=== PATIENT | female | born 1965 | race African-American/Black ===

== ENCOUNTER 2017-09-24 09:08 | Inpatient (IN) | payer BC, OTHER ==
[~2017-09-24] VITALS: Ht 167.6 cm; Wt 76.4 kg
[2017-09-24] MEDS ORDERED: SODIUM CHLORIDE 0.9% 1,000 ML IV ONE (09:40)
[2017-09-24] MEDS ORDERED: NALBUPHINE HCL 10 MG/1ml INJECTION IV ONE (09:45)
[2017-09-24] MEDS ORDERED: ASPirin 81 mg TAB PO ONE (09:45)
[2017-09-24] MEDS ORDERED: PROMETHAZINE HCL 25 MG/ML 1ML IV ONE (09:45)
[2017-09-24 10:37] LABS: Basophils # (auto) 0 uL; Basophils % (auto) 0.3 % (0.0-2.0); Eosinophils # (auto) 0 uL; Eosinophils % (auto) 0.1 % (0.0-7.0); Hematocrit 38.3 % (36.0-46.0); Hemoglobin 12.9 g/dL (12.2-16.2); Lymphocytes # (auto) 0.8 uL; Mean Corpuscular Hemoglobin 29.5 pg (28.0-32.0); Mean Corpuscular Hgb Conc. 33.8 g/dL (32.0-36.0); Mean Corpuscular Volume 87.3 fL (80.0-100.0); Monocytes # (auto) 0.4 uL; Monocytes % (auto) 4.7 % (0.0-12.0); Neutrophils # (auto) 7.3 uL; Neutrophils % (auto) 85.9 % (37.0-80.0); Nucleated Red Blood Cells % 0.2 %; Platelet Count (auto) 167 10^3/uL (140-450); Red Blood Cells 4.39 10^6/uL (4.0-5.20); Red Cell Distribution Width 13.6 % (11.8-14.3); White Blood Cell 8.5 10^3/uL (4.4-10.8)
[2017-09-24 11:06] LABS: INR 1.02 (0.9-1.15); Partial Thromboplastin Time 27.7 sec (22.64-33.71); Prothrombin Time 11.1 sec (9.37-12.3)
[2017-09-24 11:20] LABS: Alanine Aminotransferase 21 U/L (13-56); Albumin 4.1 g/dL (3.4-5.0); Alkaline Phosphatase 62 U/L (45-117); Anion Gap 10 (5-15); Aspartate Aminotransferase 17 U/L (15-37); BUN/Creatinine Ratio 13.5; Bilirubin, Total 0.7 mg/dL (0.2-1.0); Blood Urea Nitrogen 10 mg/dL (7-18); Calcium 9.1 mg/dL (8.5-10.1); Carbon Dioxide 23 mmol/L (21-32); Chloride 104 mmol/L (98-107); GFR African American 106 mL/min; GFR Non-African American 88 mL/min; Glucose 90 mg/dL (74-106); Magnesium 2.4 mg/dL (1.6-2.6); Potassium 3.1 mmol/L (3.5-5.1); Sodium 137 mmol/L (136-145); Total Protein 8.4 g/dL (6.4-8.2)
[2017-09-24] MEDS ORDERED: POTASSIUM CHL 10% (20 MEQ/15ML) 15ml ORAL SOLN PO ONE (13:15)
[2017-09-24 14:24] LABS: Urine Bacteria NONE SEEN /hpf (None Seen); Urine Blood 1+ /uL (Negative); Urine Mucus FEW (None Seen); Urine Specific Gravity 1.022 (1.001-1.035); Urine WBC <1 /hpf (0 - 5)
[2017-09-24] MEDS ORDERED: TEMAZEPAM 15 MG CAP PO PRN (15:15)
[2017-09-24] MEDS ORDERED: MORPHINE SULFATE 10 MG/ML INJ 1ML SDV IV PRN (15:15)
[2017-09-24] MEDS ORDERED: cefTRIAXone 1GM/50ML D5W 50 ML IV ONE (15:15)
[2017-09-24] MEDS ORDERED: NITROGLYCERIN 0.4 MG SL TAB SL PRN (15:15)
[2017-09-24] MEDS ORDERED: ACETAMINOPHEN 500 MG TAB PO PRN (15:15)
[2017-09-24] MEDS ORDERED: LORazepam 0.5 MG TAB PO PRN (15:15)
[2017-09-24 15:44] LABS: Alcohol, Urine < 3.0 mg/dL (0-5); Amphetamine Screen, Urine NEGATIVE (NEGATIVE); Barbiturate Scree,Urine NEGATIVE (NEGATIVE); Benzodiazephine Screen, Urine NEGATIVE (NEGATIVE); Cannabinoid Screen, Urine NEGATIVE (NEGATIVE); Cocaine Screen, Urine NEGATIVE (NEGATIVE); Opiate Scree,Urine NEGATIVE (NEGATIVE); Phencyclidine Screen, Urine NEGATIVE (NEGATIVE)
[2017-09-24] MEDS: FAMOTIDINE (10MG/ML) 2ML VL IV SCH ×2 (15:47→21:30)
[2017-09-24] MEDS: SOD CHL 0.9%/ KCL 20MEQ 1,000 ML IV SCH (15:47)
[2017-09-24] MEDS: HYDROcodone-ACET 5/325MG TAB PO PRN ×2 (15:48→20:05)
[2017-09-24] MEDS: MORPHINE SULFATE 10 MG/ML INJ 1ML SDV IV PRN ×2 (17:28→21:33)
[2017-09-24 18:54] VITALS: BP 107/60
[2017-09-24] MEDS: metroNIDAZOLE 500MG/100ML 100 ML IV SCH (19:02)
[2017-09-24 20:00] VITALS: BP 115/70
[2017-09-24] MEDS: PROMETHAZINE HCL 25 MG/ML 1ML IV PRN (21:36)
[2017-09-24 23:09] VITALS: BP 115/70
[2017-09-25] MEDS: metroNIDAZOLE 500MG/100ML 100 ML IV SCH ×5 (00:31→23:31)
[2017-09-25] MEDS: SOD CHL 0.9%/ KCL 20MEQ 1,000 ML IV SCH ×2 (01:15→12:09)
[2017-09-25] MEDS: MORPHINE SULFATE 10 MG/ML INJ 1ML SDV IV PRN ×2 (03:49→09:42)
[2017-09-25 05:10] VITALS: BP 105/64
[2017-09-25 07:38] LABS: Basophils # (auto) 0.1 uL; Basophils % (auto) 0.4 % (0.0-2.0); Eosinophils # (auto) 0 uL; Eosinophils % (auto) 0.1 % (0.0-7.0); Hematocrit 35.8 % (36.0-46.0); Hemoglobin 12.1 g/dL (12.2-16.2); Lymphocytes # (auto) 0.7 uL; Mean Corpuscular Hemoglobin 29.7 pg (28.0-32.0); Mean Corpuscular Hgb Conc. 33.8 g/dL (32.0-36.0); Mean Corpuscular Volume 87.9 fL (80.0-100.0); Neutrophils # (auto) 10.5 uL; Neutrophils % (auto) 85.5 % (37.0-80.0); Platelet Count (auto) 154 10^3/uL (140-450); Red Blood Cells 4.08 10^6/uL (4.0-5.20); Red Cell Distribution Width 14.1 % (11.8-14.3); White Blood Cell 12.3 10^3/uL (4.4-10.8)
[2017-09-25 08:03] LABS: Albumin 3.1 g/dL (3.4-5.0); BUN/Creatinine Ratio 19.7; Bilirubin, Total 1.2 mg/dL (0.2-1.0); Calcium 8.6 mg/dL (8.5-10.1); Potassium 3.8 mmol/L (3.5-5.1); Total Protein 7.4 g/dL (6.4-8.2)
[2017-09-25 09:00] VITALS: BP 104/64
[2017-09-25] MEDS: cefTRIAXone 1GM/50ML D5W 50 ML IV SCH (09:29)
[2017-09-25] MEDS: FAMOTIDINE (10MG/ML) 2ML VL IV SCH ×2 (09:29→21:35)
[2017-09-25] MEDS: ENOXAPARIN SOD 40 MG/0.4 ML SYRINGE SC SCH (10:00)
[2017-09-25] MEDS ORDERED: MIDAZOLAM HCL 1MG/1ML-2 ML VIAL ONE (13:07)
[2017-09-25] MEDS ORDERED: LIDOCAINE HCL 2 %PF INJ 10ML AMP IJ ONE (13:07)
[2017-09-25] MEDS ORDERED: PROPOFOL 10 MG/ML 20 ML IV ONE (13:07)
[2017-09-25] MEDS ORDERED: METOCLOPRAMIDE HCL 5MG/ml INJ 2ml VIAL ONE (13:07)
[2017-09-25] MEDS ORDERED: fentaNYL CITRATE 100 MCG/2 ML VL ONE (13:07)
[2017-09-25] MEDS ORDERED: ONDANSETRON HCL 4 MG/2 ML VIAL ONE (13:07)
[2017-09-25] MEDS ORDERED: ROCURONIUM 10MG/ML 10ML VIAL IV ONE (13:11)
[2017-09-25] MEDS ORDERED: POVIDONE IODINE 10 % TOPICAL OINT 30GM TOP ONE (13:16)
[2017-09-25] MEDS ORDERED: ceFAZolin 1GM/50ML 0 ML IV ONE (13:16)
[2017-09-25] MEDS ORDERED: ceFAZolin 1GM VL ONE (13:18)
[2017-09-25] MEDS ORDERED: PHENYLEPHRINE HCL 10 MG/ML VL ONE (13:20)
[2017-09-25] MEDS ORDERED: NEOSTIGMINE 1 MG/ML INJ (10mg/10ML VIAL) ONE (13:46)
[2017-09-25] MEDS ORDERED: KETOROLAC TROMETH 30 MG/ML 1ML VIAL ONE (13:46)
[2017-09-25] MEDS ORDERED: GLYCOPYRROLATE 0.2 MG/ML 1ML VIAL ONE (13:46)
[2017-09-25] MEDS ORDERED: DEXAMETHASONE SOD PHOS 10MG/1ML VIAL INJ ONE (13:49)
[2017-09-25] MEDS ORDERED: METOCLOPRAMIDE HCL 5MG/ml INJ 2ml VIAL IV ONE (14:45)
[2017-09-25] MEDS ORDERED: LABETALOL HCL 5 MG/ML 4ML SYRINGE IV PRN (14:45)
[2017-09-25] MEDS ORDERED: HYDROmorphone HCL 2 MG/ML VL IV PRN (14:45)
[2017-09-25 17:00] VITALS: BP 91/55
[2017-09-25] MEDS: HYDROcodone-ACET 5/325MG TAB PO PRN (21:43)
[2017-09-25 22:22] VITALS: BP 114/68
[2017-09-26] MEDS: SOD CHL 0.9%/ KCL 20MEQ 1,000 ML IV SCH ×3 (04:33→19:00)
[2017-09-26] MEDS: HYDROcodone-ACET 5/325MG TAB PO PRN ×2 (04:35→18:10)
[2017-09-26 04:41] VITALS: BP 96/60
[2017-09-26] MEDS: metroNIDAZOLE 500MG/100ML 100 ML IV SCH ×4 (05:39→23:28)
[2017-09-26 09:00] VITALS: BP 98/52
[2017-09-26] MEDS: MORPHINE SULFATE 10 MG/ML INJ 1ML SDV IV PRN ×2 (09:53→14:29)
[2017-09-26] MEDS: ENOXAPARIN SOD 40 MG/0.4 ML SYRINGE SC SCH (09:53)
[2017-09-26] MEDS: FAMOTIDINE (10MG/ML) 2ML VL IV SCH ×2 (09:53→22:14)
[2017-09-26] MEDS: cefTRIAXone 1GM/50ML D5W 50 ML IV SCH (09:53)
[2017-09-26 17:00] VITALS: BP 116/69
[2017-09-26 22:00] VITALS: BP 117/75
[2017-09-27] MEDS: MORPHINE SULFATE 10 MG/ML INJ 1ML SDV IV PRN ×3 (05:26→15:39)
[2017-09-27] MEDS: metroNIDAZOLE 500MG/100ML 100 ML IV SCH ×4 (05:44→23:37)
[2017-09-27 05:56] VITALS: BP 118/73
[2017-09-27] MEDS: SOD CHL 0.9%/ KCL 20MEQ 1,000 ML IV SCH ×2 (06:08→17:39)
[2017-09-27 06:28] LABS: Basophils # (auto) 0 uL; Basophils % (auto) 0.3 % (0.0-2.0); Eosinophils # (auto) 0.1 uL; Eosinophils % (auto) 1.1 % (0.0-7.0); Hematocrit 26.7 % (36.0-46.0); Hemoglobin 9.1 g/dL (12.2-16.2); Lymphocytes # (auto) 0.8 uL; Lymphocytes % (auto) 14.8 % (10.0-50.0); Mean Corpuscular Hemoglobin 29.9 pg (28.0-32.0); Mean Corpuscular Hgb Conc. 34.3 g/dL (32.0-36.0); Mean Corpuscular Volume 87.4 fL (80.0-100.0); Monocytes # (auto) 0.4 uL; Monocytes % (auto) 7.4 % (0.0-12.0); Neutrophils # (auto) 4.2 uL; Neutrophils % (auto) 76.4 % (37.0-80.0); Platelet Count (auto) 141 10^3/uL (140-450); Red Blood Cells 3.06 10^6/uL (4.0-5.20); Red Cell Distribution Width 13.5 % (11.8-14.3); White Blood Cell 5.5 10^3/uL (4.4-10.8)
[2017-09-27 06:43] LABS: Calcium 8.1 mg/dL (8.5-10.1); Magnesium 2.2 mg/dL (1.6-2.6); Phosphorus 1.5 mg/dL (2.5-4.90); Potassium 3.4 mmol/L (3.5-5.1)
[2017-09-27 08:30] VITALS: BP 127/75
[2017-09-27] MEDS ORDERED: POTASSIUM CHL 20 Meq TABLET PO ONE (09:30)
[2017-09-27] MEDS ORDERED: NEUTRA-PHOS TABLET PO ONE (09:30)
[2017-09-27 09:36] VITALS: BP_SYST 111; BP_SYST 112; BP_SYST 116; BP_DIAS 71; BP_DIAS 73; BP_DIAS 76
[2017-09-27] MEDS: ENOXAPARIN SOD 40 MG/0.4 ML SYRINGE SC SCH (09:42)
[2017-09-27] MEDS: cefTRIAXone 1GM/50ML D5W 50 ML IV SCH (09:50)
[2017-09-27] MEDS: FAMOTIDINE (10MG/ML) 2ML VL IV SCH ×2 (09:51→21:24)
[2017-09-27] MEDS: PROMETHAZINE HCL 25 MG/ML 1ML IV PRN (09:58)
[2017-09-27 10:21] LABS: Basophils # (auto) 0 uL; Basophils % (auto) 0.2 % (0.0-2.0); Eosinophils # (auto) 0.1 uL; Eosinophils % (auto) 0.9 % (0.0-7.0); Hematocrit 29.8 % (36.0-46.0); Hemoglobin 10.1 g/dL (12.2-16.2); Lymphocytes # (auto) 0.8 uL; Lymphocytes % (auto) 14.7 % (10.0-50.0); Mean Corpuscular Hemoglobin 29.5 pg (28.0-32.0); Mean Corpuscular Hgb Conc. 33.8 g/dL (32.0-36.0); Mean Corpuscular Volume 87.2 fL (80.0-100.0); Monocytes # (auto) 0.4 uL; Monocytes % (auto) 7.3 % (0.0-12.0); Neutrophils # (auto) 4.2 uL; Neutrophils % (auto) 76.9 % (37.0-80.0); Nucleated Red Blood Cells % 0.1 %; Platelet Count (auto) 155 10^3/uL (140-450); Red Blood Cells 3.42 10^6/uL (4.0-5.20); Red Cell Distribution Width 13.6 % (11.8-14.3); White Blood Cell 5.4 10^3/uL (4.4-10.8)
[2017-09-27 12:15] VITALS: BP 120/75
[2017-09-27 16:20] VITALS: BP 120/76
[2017-09-27 21:57] VITALS: BP 124/78
[2017-09-28] MEDS: HYDROcodone-ACET 5/325MG TAB PO PRN (00:10)
[2017-09-28] MEDS: metroNIDAZOLE 500MG/100ML 100 ML IV SCH ×4 (05:33→23:42)
[2017-09-28 06:01] VITALS: BP 117/70
[2017-09-28] MEDS: SOD CHL 0.9%/ KCL 20MEQ 1,000 ML IV SCH ×3 (06:29→17:46)
[2017-09-28] MEDS: MORPHINE SULFATE 10 MG/ML INJ 1ML SDV IV PRN (06:42)
[2017-09-28 06:46] LABS: Basophils # (auto) 0 uL; Basophils % (auto) 0.5 % (0.0-2.0); Eosinophils # (auto) 0.1 uL; Hematocrit 29.5 % (36.0-46.0); Hemoglobin 10.3 g/dL (12.2-16.2); Lymphocytes # (auto) 0.8 uL; Lymphocytes % (auto) 17.9 % (10.0-50.0); Mean Corpuscular Hemoglobin 30.1 pg (28.0-32.0); Mean Corpuscular Hgb Conc. 35.1 g/dL (32.0-36.0); Mean Corpuscular Volume 85.9 fL (80.0-100.0); Monocytes # (auto) 0.4 uL; Monocytes % (auto) 9.8 % (0.0-12.0); Neutrophils % (auto) 69.8 % (37.0-80.0); Platelet Count (auto) 179 10^3/uL (140-450); Red Blood Cells 3.43 10^6/uL (4.0-5.20); Red Cell Distribution Width 13.5 % (11.8-14.3); White Blood Cell 4.3 10^3/uL (4.4-10.8)
[2017-09-28 07:54] LABS: Albumin 2.7 g/dL (3.4-5.0); BUN/Creatinine Ratio 8.3; Bilirubin, Total 0.4 mg/dL (0.2-1.0); Calcium 8.7 mg/dL (8.5-10.1); Potassium 3.7 mmol/L (3.5-5.1); Total Protein 6.6 g/dL (6.4-8.2)
[2017-09-28] MEDS: cefTRIAXone 1GM/50ML D5W 50 ML IV SCH (08:32)
[2017-09-28] MEDS: FAMOTIDINE (10MG/ML) 2ML VL IV SCH ×2 (08:35→21:38)
[2017-09-28 09:00] VITALS: BP 118/83
[2017-09-28 13:00] VITALS: BP 114/69
[2017-09-28 17:29] VITALS: BP 115/78
[2017-09-28 21:50] VITALS: BP 119/73
[2017-09-29] MEDS: SOD CHL 0.9%/ KCL 20MEQ 1,000 ML IV SCH (01:51)
[2017-09-29] MEDS: HYDROcodone-ACET 5/325MG TAB PO PRN (01:54)
[2017-09-29 04:50] VITALS: BP 122/75
[2017-09-29] MEDS: metroNIDAZOLE 500MG/100ML 100 ML IV SCH ×2 (05:48→12:33)
[2017-09-29 08:00] VITALS: BP 120/74
[2017-09-29 08:50] VITALS: BP 120/74
[2017-09-29] MEDS: FAMOTIDINE (10MG/ML) 2ML VL IV SCH (09:39)
[2017-09-29] MEDS: cefTRIAXone 1GM/50ML D5W 50 ML IV SCH (09:39)
[2017-09-29 13:05] VITALS: BP 120/74
== END 2017-09-29 17:30 | disposition home or self-care (01) | DRG 418 ==
LOC: ER 09:08 → EDBD 09:08 → OVERFLOW 09:09 → TELE-E-ADS 17:42 → TELE-CENTR 18:32
PROVIDERS: ADMIT Internal Medicine; ATTEND Nurse Practitioner Acute Care
PROC: 0FT44ZZ Resection of Gallbladder, Percutaneous Endoscopic Approach (ICD-10-PCS; principal; 2017-09-25 13:12)
DX: K80.00 Calculus of gallbladder with acute cholecystitis without obstruction (principal); D62 Acute posthemorrhagic anemia; E87.6 Hypokalemia; E66.9 Obesity, unspecified; R00.1 Bradycardia, unspecified; D25.9 Leiomyoma of uterus, unspecified; Z68.27 Body mass index [BMI] 27.0-27.9, adult; Z83.3 Family history of diabetes mellitus
CPT/HCPCS: 36415; 71020; 76705; 78226; 80048; 80053; 80307; 81001; 82150; 82247; 82550; 83690; 83735; 84100; 84443; 84484; 85025; 85379; 85610; 85730; 86850; 86900; 86901; 93005; 94761; 96361; 96365; 96375; J0690; J0696; J1100; J1885; J2250; J2405; J2704; J3490

== ENCOUNTER 2017-10-01 16:28 | Emergency (ER) | payer BC ==
[~2017-10-01] VITALS: Ht 167.6 cm; Wt 72.6 kg
[2017-10-01 17:02] VITALS: BP 107/77
[2017-10-01 17:37] LABS: Basophils # (auto) 0.1 uL; Eosinophils # (auto) 0.2 uL; Eosinophils % (auto) 2.6 % (0.0-7.0); Hematocrit 33.7 % (36.0-46.0); Hemoglobin 11.3 g/dL (12.2-16.2); Lymphocytes # (auto) 1.7 uL; Lymphocytes % (auto) 22.4 % (10.0-50.0); Mean Corpuscular Hemoglobin 29.2 pg (28.0-32.0); Mean Corpuscular Hgb Conc. 33.7 g/dL (32.0-36.0); Mean Corpuscular Volume 86.8 fL (80.0-100.0); Monocytes # (auto) 0.8 uL; Monocytes % (auto) 10.3 % (0.0-12.0); Neutrophils # (auto) 4.8 uL; Neutrophils % (auto) 63.7 % (37.0-80.0); Nucleated Red Blood Cells % 0.1 %; Platelet Count (auto) 449 10^3/uL (140-450); Red Blood Cells 3.88 10^6/uL (4.0-5.20); Red Cell Distribution Width 13.8 % (11.8-14.3); White Blood Cell 7.6 10^3/uL (4.4-10.8)
[2017-10-01 18:29] LABS: Albumin 3.5 g/dL (3.4-5.0); BUN/Creatinine Ratio 18.3; Bilirubin, Total 0.4 mg/dL (0.2-1.0); Calcium 9.5 mg/dL (8.5-10.1); Potassium 3.7 mmol/L (3.5-5.1); Total Protein 8.9 g/dL (6.4-8.2)
== END 2017-10-01 23:58 | disposition left against medical advice (07) ==
LOC: ER 16:31
DX: R42 Dizziness and giddiness (principal); Z53.21 Procedure and treatment not carried out due to patient leaving prior to being seen by health care provider
CPT/HCPCS: 36415; 80053; 85025

== ENCOUNTER 2017-12-27 05:45 | Emergency (ER) | payer BC ==
[~2017-12-27] VITALS: Ht 167.6 cm; Wt 86.2 kg
[2017-12-27 06:51] LABS: Basophils # (auto) 0 uL; Basophils % (auto) 0.7 % (0.0-2.0); Eosinophils # (auto) 0.1 uL; Eosinophils % (auto) 1.5 % (0.0-7.0); Hematocrit 41.4 % (36.0-46.0); Hemoglobin 13.9 g/dL (12.2-16.2); Lymphocytes # (auto) 1.5 uL; Lymphocytes % (auto) 36.1 % (10.0-50.0); Mean Corpuscular Hemoglobin 28.8 pg (28.0-32.0); Mean Corpuscular Hgb Conc. 33.7 g/dL (32.0-36.0); Mean Corpuscular Volume 85.5 fL (80.0-100.0); Monocytes # (auto) 0.3 uL; Monocytes % (auto) 7.5 % (0.0-12.0); Neutrophils # (auto) 2.3 uL; Neutrophils % (auto) 54.2 % (37.0-80.0); Nucleated Red Blood Cells % 0.1 %; Platelet Count (auto) 235 10^3/uL (140-450); Red Blood Cells 4.84 10^6/uL (4.0-5.20); Red Cell Distribution Width 14.7 % (11.8-14.3); White Blood Cell 4.3 10^3/uL (4.4-10.8)
[2017-12-27 07:11] LABS: Albumin 4.4 g/dL (3.4-5.0); Calcium 10.2 mg/dL (8.5-10.1); Potassium 3.3 mmol/L (3.5-5.1)
[2017-12-27] MEDS ORDERED: SODIUM CHLORIDE 0.9% 1,000 ML IV ONE (07:11)
[2017-12-27 07:13] LABS: BUN/Creatinine Ratio 17.1
[2017-12-27] MEDS ORDERED: KETOROLAC TROMETH 30 MG/ML 1ML VIAL IV ONE (07:15)
[2017-12-27] MEDS ORDERED: METOCLOPRAMIDE HCL 5MG/ml INJ 2ml VIAL IV ONE (07:15)
[2017-12-27 07:16] LABS: Bilirubin, Total 0.6 mg/dL (0.2-1.0); Total Protein 8.9 g/dL (6.4-8.2)
[2017-12-27 09:56] LABS: Urine Bacteria NONE SEEN /hpf (None Seen); Urine Blood Negative /uL (Negative); Urine WBC <1 /hpf (0 - 5)
[2017-12-27 11:02] VITALS: BP 128/65
== END 2017-12-27 11:06 | disposition home or self-care (01) ==
LOC: EDBD 05:45 → ER 05:48
DX: R07.89 Other chest pain (principal); E87.6 Hypokalemia; Z90.49 Acquired absence of other specified parts of digestive tract
CPT/HCPCS: 36415; 71045; 80053; 81001; 83735; 84443; 84484; 85025; 85379; 93005; 94761; 96361; 96374; 96375; 99285; J1885; J2765